=== PATIENT | male | born 1995 | race Caucasian/White ===

== ENCOUNTER 2018-03-26 18:18 | Emergency (ER) | payer SELFPAY ==
[~2018-03-26] VITALS: Ht 172.7 cm; Wt 54.4 kg
[2018-03-26] MEDS ORDERED: NACL 0.9% 1,000 ML IV ONE (18:27)
[2018-03-26 18:28] VITALS: BP_SYST 130
[2018-03-26] MEDS ORDERED: KETOROLAC TROMETHAMINE 30 MG VIAL IVP ONE (18:30)
[2018-03-26] MEDS ORDERED: ONDANSETRON HCL 4 MG/2 ML VIAL IVP ONE (18:30)
== END 2018-03-26 18:45 | disposition left against medical advice (07) ==
LOC: SED 18:18
DX: R11.2 Nausea with vomiting, unspecified (principal)
CPT/HCPCS: 99283